=== PATIENT | male | born 2000 | race African-American/Black ===

== ENCOUNTER 2023-05-12 03:05 | Emergency (ER) | payer MEDICAID, OTHER ==
[~2023-05-12] VITALS: Ht 188 cm; Wt 97.7 kg
[2023-05-12 03:18] VITALS: BP 114/74; PULSE 103; RESP 21; TEMP 97.7; O2SAT 98
[2023-05-12] MEDS: DexAMETHasone SOD PHOS 10MG/1ML VIAL INJ IM ONE (03:48)
== END 2023-05-12 04:00 | disposition home or self-care (01) ==
LOC: ER 03:05
DX: R07.0 Pain in throat (principal)
CPT/HCPCS: 96372; 99283; J1100